=== PATIENT | male | born 1945 | race Caucasian/White ===

== ENCOUNTER → 2022-06-25 08:10 | Outpatient (REF) | payer OTHER, SELFPAY ==
--- NOTE | 2022-06-25 08:17 | CA_ITS ---
Transthoracic Echocardiogram Patient (Last, First, Middle): Jewel Newell S Gender: Male Date of : 1945 Age: 76 Procedure Date: 06/25/2022 Procedure Type: Transthoracic Echocardiogram Location: OP Height: 177.8 cm Weight: 88.45 kg BSA: 2.06 m2 Heart Rate: 80 bpm BP: 160 / 90 mmHg Injection Molding Supervisor: [email or web address] Referring MD: Daniella Childs MD Animal Scientist: Hiren Clemons MD Symptoms: ATRIAL FIBRILLATIOM Study Quality: Fair ECG Rhythm: Atrial Fibrillation Conclusions: - 1. Moderate LV systolic dysfunction with LVEF of 35-40% 2. Mild biatrial enlargement 3. Mild mitral regurgitation 4. Normal RV systolic pressure 5. No gross pericardial effusion Findings Left Ventricle Normal left ventricular cavity size. There is normal left ventricular wall thickness. The left ventricular systolic function is moderately decreased. The visually estimated ejection fraction is between 35-40%. Diastolic function is indeterminate on the basis of available data. Right Ventricle Mildly increased right ventricular cavity size. There is normal right ventricular systolic function. Atria Mild biatrial enlargement. There is no evidence of interatrial shunt. Aortic Valve There is mild calcification of the aortic valve. There is mild thickening of the aortic valve. There is no aortic valve stenosis. There is no aortic valve regurgitation. Mitral Valve There is mild anterior and posterior mitral leaflet thickening. There is mild mitral valve regurgitation. There is no mitral valve stenosis. Pulmonic Valve The pulmonic valve was not well visualized. Tricuspid Valve Likely normal tricuspid valve structure and function. There is mild tricuspid valve regurgitation. The right ventricular systolic pressure is normal. Normal right atrial pressure. There is no evidence of pulmonary hypertension. Great Vessels All visible segments of the aorta are normal in size. The pulmonary artery was not well visualized. Venous The inferior vena cava is mildly dilated and collapses greater than 50% with inspiration. Pericardium/Pleural There is no evidence of pericardial effusion. Prior Study Comparison No prior study available for comparison. Measurements 2D Linear Measurements IVSd: 1.19 0.6-0.9/0.6-1.0 cm LVIDd: 4.00 3.9-5.3/4.2-5.9 cm LVIDd Index: 1.94 2.4-3.2/2.2-3.1 cm/m2 LVIDs: 3.01 2.0-3.6 cm LVPWd: 1.06 0.7-1.1 cm LA Diam: 4.60 2.7-3.8/3.0-4.0 cm LAIDs Index: 2.23 1.5-2.3 cm/m2 LV Mass: 187.35 67-162/88-224 g LV Mass Index: 90.94 43-95/49-115 g/m2 LVOT Diam: 2.10 3.0+(-)1.3 cm 2D Systolic Function EF 4C: 27.00 >55% EF 2C: 40.10 >55% Aortic Valve AoV Pk Tonny: 0.84 AoV Mn Tonny: 0.63 AoV VTI: 0.15 AoV Pk Grad: 3.00 Aov Mn Grad: 2.00 GAIL Cont.VTI: 2.40 LVOT LVOT Pk Tonny: 0.63 LVOT Mn Tonny: 0.44 LVOT VTI: 0.10 LVOT Pk Grad: 2.00 LVOT Mn Grad: 1.00 LVOT Diam: 2.10 LVOT Area: 3.46 Right Ventricle TAPSE (mm): 19.30 TVS' Tonny: 11.10 Tricuspid Valve TR Pk Tonny: 1.92 TR Pk Grad: 15.00 RA Press: 8.00 RVSP: 23.00 Great Vessels Aorta Sinus of Valsalva: 3.40 2.0-3.5 cm Ao Asc: 3.50 2.1-3.4 cm Pulmonary Valve PV Pk Tonny: 0.68 Peak PV Grad: 2.00 Updated in Other Vendor System with Status of Final Hiren Clemons MD electronically signed on 06/25/2022 11:36:59 AM with status of Final
== END ==
LOC: HO.CARD 08:10
PROVIDERS: Visit Provider Internal Medicine Cardiovascular Disease
DX: I48.91 Unspecified atrial fibrillation (principal)
CPT/HCPCS: 93306